=== PATIENT | male | born 1935 | race Caucasian/White ===

== ENCOUNTER 2016-07-03 04:44 | Emergency (ER) | payer MEDICARE, BC ==
[2008-07-10 22:19] VITALS: BP 139/73
[~2016-07-03] VITALS: Ht 165.1 cm; Wt 45.4 kg
[~2016-07-03 04:44] MED LIST: 00186-0370-20 IH; ADALAT CC30 MG PO; ADVAIR 100/28 DISKUS IH; ADVAIR 250/28 DISKUS IH; AFRIN 15 ML15 ML; ALLEGRA 180MG180 MG PO; AMIODARONE HCL200 MG PO; ANDRO 100100 MG/ML IM; ANECREAM15 TOP; ASPIR-LOW81 MG PO; ATARAX 25MG25 MG/TAB PO; BACTRIM DS 8001 TAB PO; BETAPACE AF120 MG PO; BYSTOLIC10 MG PO; CALCIUM CITRAT200 MG PO; CITRACAL + D 311 TAB PO; CITRACAL + D CA1 TAB PO; CORDARONE200 MG PO; COUMADIN 1MG1 MG/TAB PO; COUMADIN1 MG PO; DEPO-TESTOS200 MG/M1 IM; DIFLUCAN 100MG100 MG PO; DITROPAN XL10 MG PO; FLOVENT 220MCG7.9 GM IH; LANOXIN 0.120.125 MG PO; LEVAQUIN 5500 MG/TA1 PO; LEVOXYL0.1 MG PO; LEXAPRO 10MG10 MG PO; LIPITOR40 MG PO; MULTAQ400 MG PO; NIFEDIPINE ER30 MG PO; NORCO 325 MG-51 TAB PO; POTASSIUM IODID PO; PROCARDIA XL 3030 MG PO; RT ADVAIR 128 DISKUS IH; RT SPIRIVA18 MCG IH; SEPTRA DS 8001 TAB PO; SILDENAFIL; SPIRIVA INH IH; SUPER EPA 1201200 MG PO; SYNTHROID PO; SYNTHROID0.1 MG/TAB PO; TESTOSTERON200 MG/ML IM; TESTOSTERONE; THEO-DUR 1100 MG/TAB PO; THEOPHYLLINE PO; TIAZAC120 MG PO; TIAZAC240 MG PO; TYLENOL 325MG325 MG PO; VALTREX1 GM PO; VENTOLIN0.09 MG IH; VESICARE10 MG PO; VIAGRA50 MG PO; VITAMIN D; VITAMIN D32000 IU PO; XANAX .25M0.25 MG/TA PO; ZOCOR 40MG40 MG PO; ZOCOR40 MG PO; ZYRTEC 10MG PO; [UNRECOGNIZED DRUG - REMARK]
[2016-07-03 05:04] VITALS: TEMP 100.4
[2016-07-03] MEDS ORDERED: UNIPHYL 400MG400 MG PO (05:27)
[2016-07-03 05:31] LABS: MEAN CELL VOLUME 98 fl (80.0-100.0); MEAN CORPUSCULAR HGB CONC 32 g/dl (33.0-37.0); MEAN PLATELET VOLUME 10.5 fl (7.4-10.4); PLATELET COUNT 127 K/mm3 (130-400); RED BLOOD COUNT 3.45 M/mm3 (4.20-5.60); REDCELL DISTRIBUTION WIDTH-CV 13.8 % (11.5-14.5); WHITE BLOOD COUNT 9.4 K/mm3 (4.8-10.8)
[2016-07-03] MEDS ORDERED: VITAMIN D32000 IU PO (05:33)
[2016-07-03] MEDS ORDERED: PROLIA60 MG/ML SC (05:37)
[2016-07-03 05:40] LABS: ADJUSTED CALCIUM 9.1 mg/dL (8.4-10.2); CALCIUM 8.3 mg/dL (8.4-10.2); CREATININE, serum 0.84 mg/dL (0.66-1.25); POTASSIUM 3.8 mmol/L (3.4-5.0); TOTAL PROTEIN 5.6 gm/dL (6.4-8.2)
[2016-07-03 05:42] LABS: ADD PATHOLOGY DIFF REVIEW NO; HEMATOCRIT 33.9 % (42.0-52.0); HEMOGLOBIN 10.8 g/dl (13.5-18.0); MEAN CORPUSCULAR HEMOGLOBIN 31 pg (27.0-31.0)
[2016-07-03] MEDS ORDERED: ATROVENT NASAL15 ML NS (05:42)
[2016-07-03] MEDS ORDERED: NORCO 325 MG-51 TAB PO (05:43)
[2016-07-03 05:44] LABS: PROTHROMBIN TIME 22.9 SECONDS (9.7-12.8)
[2016-07-03] MEDS ORDERED: CEFACLOR250 MG PO (05:44)
[2016-07-03 05:59] LABS: BAND 14 % (0-10); NEUTROPHILS 80 % (42.0-75.2); PLATELET ESTIMATE NORMAL (NORMAL); TOTAL CELLS COUNTED 100
[2016-07-03 07:15] LABS: PH 7 (5-8); SQUAMOUS EPITHELIAL 0-2 /hpf; URINE APPEARANCE Cloudy; URINE BACTERIA Rare /hpf; URINE BILIRUBIN Negative (NEGATIVE); URINE BLOOD 1+ (NEGATIVE); URINE COLOR Yellow; URINE GLUCOSE Negative (NEGATIVE); URINE KETONE Negative (NEGATIVE); URINE UROBILINOGEN Negative (NEGATIVE); URINE WBC >50 /hpf
[2016-07-03 08:00] VITALS: BP 122/75; PULSE 80
[2016-07-03] MEDS ORDERED: BACTRIM DS 8001 TAB PO (08:01)
== END 2016-07-03 09:00 | disposition home or self-care (01) ==
LOC: COL.ER 04:44
PROVIDERS: Emergency Medicine
DX: M54.5 Low back pain (principal); N39.0 Urinary tract infection, site not specified
CPT/HCPCS: J2270; J2405; J7030

== ENCOUNTER 2016-08-02 20:10 | Inpatient (IN) | payer MEDICARE, BC ==
[~2016-08-02] VITALS: Ht 165.1 cm; Wt 45.0 kg
[~2016-08-02 20:10] MED LIST changes: +ATROVENT NASAL15 ML NS; +CEFACLOR250 MG PO; +PROLIA60 MG/ML SC; +UNIPHYL 400MG400 MG PO
[2016-08-02 20:54] LABS: INR 3.1 (0.8-3.0)
[2016-08-02 20:55] LABS: HEMATOCRIT 37.5 % (42.0-52.0); MEAN CELL VOLUME 98 fl (80.0-100.0); MEAN CORPUSCULAR HEMOGLOBIN 31 pg (27.0-31.0); MEAN CORPUSCULAR HGB CONC 32 g/dl (33.0-37.0); MEAN PLATELET VOLUME 10.4 fl (7.4-10.4); PLATELET COUNT 164 K/mm3 (130-400); RED BLOOD COUNT 3.82 M/mm3 (4.20-5.60); REDCELL DISTRIBUTION WIDTH-CV 14.4 % (11.5-14.5); WHITE BLOOD COUNT 11.3 K/mm3 (4.8-10.8)
[2016-08-02 20:56] LABS: ADD PATHOLOGY DIFF REVIEW NO; HEMOGLOBIN 11.9 g/dl (13.5-18.0); PARTIAL THROMBOPLASTIN TIME 39.7 SECONDS (26.0-37.0)
[2016-08-02 21:01] LABS: ADJUSTED CALCIUM 9.3 mg/dL (8.4-10.2); ALANINE AMINOTRANSFERASE 38 U/L (21-72); ALBUMIN 3.5 gm/dL (3.5-5.0); ALKALINE PHOSPHATASE 48 U/L (50-136); ANION GAP 10 mmol/L (7-16); BILIRUBIN,TOTAL 1.1 mg/dL (0.0-1.0); BLOOD UREA NITROGEN 26 mg/dL (9-20); CALCIUM 8.9 mg/dL (8.4-10.2); CARBON DIOXIDE 31 mmol/L (22-30); CHLORIDE 98 mmol/L (98-107); CREATININE, serum 0.77 mg/dL (0.66-1.25); GLUCOSE 107 mg/dL (74-106); POTASSIUM 3.8 mmol/L (3.4-5.0); SODIUM 138 mmol/L (137-145); TOTAL PROTEIN 6.1 gm/dL (6.4-8.2)
[2016-08-02 21:12] LABS: BAND 32 % (0-10); NEUTROPHILS 59 % (42.0-75.2); PLATELET ESTIMATE NORMAL (NORMAL); TOTAL CELLS COUNTED 100
[2016-08-02 21:13] LABS: B-TYPE NATRIURETIC PEPTIDE 7110 pg/mL (0-450); TROPONIN-I < 0.012 ng/mL (0.000-0.034)
[2016-08-02 22:55] VITALS: BP 131/96; PULSE 53; TEMP 98.9
[2016-08-03 03:53] VITALS: BP 112/74; PULSE 72; TEMP 97.5
[2016-08-03 08:16] VITALS: BP 118/66; PULSE 87; TEMP 97.6
[2016-08-03] MEDS ORDERED: COUMADIN 1MG1 MG/TAB PO (10:57)
[2016-08-03 12:20] VITALS: BP 115/68; PULSE 92
[2016-08-03 15:34] LABS: INR 2.8 (0.8-3.0); PROTHROMBIN TIME 31.6 SECONDS (9.7-12.8)
[2016-08-03 17:07] VITALS: BP 141/89; PULSE 79; TEMP 97.1
[2016-08-03 20:48] VITALS: BP 140/71; PULSE 90; TEMP 97.9
[2016-08-04 05:07] VITALS: BP 125/72; PULSE 99; TEMP 97.6
[2016-08-04 06:09] VITALS: BP 155/90; PULSE 77; TEMP 97.8
[2016-08-04 08:29] LABS: PROTHROMBIN TIME 22.5 SECONDS (9.7-12.8)
[2016-08-04 09:00] VITALS: BP 108/59; PULSE 76; TEMP 97.8
[2016-08-04] MEDS ORDERED: ZITHROMAX 250M250 MG PO (12:24)
[2016-08-04] MEDS ORDERED: MEDROL 4MG DOSPA4 MG PO (12:25)
== END 2016-08-04 13:30 | disposition home or self-care (01) | DRG 192 ==
LOC: COL.ER 20:10 → MEDICAL 21:46
PROVIDERS: Emergency Medicine; Internal Medicine
DX: J44.1 Chronic obstructive pulmonary disease with (acute) exacerbation (principal); E03.9 Hypothyroidism, unspecified; I27.2 Other secondary pulmonary hypertension; I48.2 Chronic atrial fibrillation
CPT/HCPCS: 99222-AI; 99233-AI; 99239; J0456; J0696; J1650; J1940; J2270; J2920; J2930; J7030; J7050

== ENCOUNTER 2017-10-01 19:39 | Emergency (ER) | payer MEDICARE ==
[2008-07-10 22:19] VITALS: BP 139/73
[~2017-10-01] VITALS: Ht 165.1 cm; Wt 42.3 kg
[~2017-10-01 19:39] MED LIST changes: +MEDROL 4MG DOSPA4 MG PO; +ZITHROMAX 250M250 MG PO
[2017-10-01 19:49] VITALS: TEMP 98.4
[2017-10-01 20:13] LABS: ALBUMIN 3.1 gm/dL (3.5-5.0); BASO % 0.6 % (0.0-2.0); BILIRUBIN,TOTAL 0.5 mg/dL (0.0-1.0); CALCIUM 9.3 mg/dL (8.4-10.2); CREATININE, serum 0.93 mg/dL (0.66-1.25); EOS % 0.7 % (0-4.0); GRAN # 4.8 (1.4-6.5); GRAN % 89.2 % (42.2-75.2); HEMATOCRIT 38.1 % (42.0-52.0); LYMPH # 0.2 (1.2-3.4); LYMPH % 3.9 % (20.0-51.0); MEAN CELL VOLUME 98 fl (80.0-100.0); MEAN CORPUSCULAR HEMOGLOBIN 31 pg (27.0-31.0); MEAN CORPUSCULAR HGB CONC 32 g/dl (33.0-37.0); MEAN PLATELET VOLUME 10.7 fl (7.4-10.4); MONO # 0.3 (0.1-0.6); MONO % 5.4 % (1.7-9.3); PLATELET COUNT 172 K/mm3 (130-400); POTASSIUM 3.8 mmol/L (3.4-5.0); RED BLOOD COUNT 3.88 M/mm3 (4.20-5.60); REDCELL DISTRIBUTION WIDTH-CV 14.5 % (11.5-14.5)
[2017-10-01 20:24] LABS: TROPONIN-I 0.015 ng/mL (0.000-0.034)
[2017-10-01] MEDS ORDERED: PREDNISONE20 MG PO ×3 (21:37→23:49)
[2017-10-01 22:21] VITALS: BP 130/90; PULSE 105
[2017-10-01 22:35] LABS: INR 4.2 (0.8-3.0)
[2017-10-01 22:37] LABS: PROTHROMBIN TIME 47.3 SECONDS (9.7-12.8)
[2017-10-01] MEDS ORDERED: REMERON 15M15 MG/TA1 PO (22:47)
== END 2017-10-01 22:22 | disposition home or self-care (01) ==
LOC: COL.ER 19:39
PROVIDERS: Emergency Medicine
DX: J44.1 Chronic obstructive pulmonary disease with (acute) exacerbation (principal); I48.91 Unspecified atrial fibrillation; Z85.51 Personal history of malignant neoplasm of bladder; Z79.01 Long term (current) use of anticoagulants
CPT/HCPCS: J7512